=== PATIENT | female | born 1995 | race Caucasian/White ===

== ENCOUNTER 2017-09-17 16:27 | Emergency (ER) | payer OTHER ==
[~2017-09-17] VITALS: Ht 162.6 cm; Wt 68.0 kg
[~2017-09-17 16:27] MED LIST: FLEXERIL 5MG TAB5 MG PO; MOBIC 15MG15 MG PO
[2017-09-17 20:03] LABS: ABSOLUTE BASOPHIL COUNT 0 /CUMM (0.0-0.2); ABSOLUTE EOSINOPHIL COUNT 0.1 /CUMM (0.0-0.7); ABSOLUTE GRANULOCYTE CT 4.4 /CUMM (1.4-6.5); ABSOLUTE LYMPH COUNT 2.1 /CUMM (1.2-3.4); ABSOLUTE MONOCYTE COUNT 0.4 /CUMM (0.10-0.60); BASOPHIL % 0.3 % (0.0-2.0); EOSINOPHIL % 1.1 % (0-5); GRANULOCYTE % 62.4 % (42.2-75.2); HEMATOCRIT 37.8 % (37-47); MEAN CORPUSCULAR HGB 30.2 PG (27.0-31.0); MEAN CORPUSCULAR HGB CONC 33.9 G/DL (33.0-37.0); MEAN CORPUSCULAR VOLUME 89.3 FL (81.0-99.0); PLATELET COUNT 254 /CUMM (130-400); RBC DISTRIBUTION WIDTH 14.8 % (11.5-14.5); RED BLOOD CELL CT 4.24 /CUMM (4.20-5.40)
[2017-09-17] MEDS ORDERED: ZOFRAN ODT4 M1 SL (21:28)
[2017-09-17] MEDS ORDERED: DICLEGIS DR 101 EACH PO (21:28)
--- NOTE | 2017-09-17 21:28 | ED GI/GU/ABDOMINAL COMPLAINT ---
History of Present Illness General Chief Complaint: General Adult Stated Complaint: "IM AND NEED IV FLUIDS" Source: patient, family, old records Exam Limitations: no limitations Vital Signs & Intake/Output Vital Signs & Intake/Output Vital Signs Date Time Temp Pulse Resp B/P B/P Pulse O2 O2 Flow FiO2 Mean Ox Delivery Rate 09/172 98.6 56 16 119/67 100 Room Air 09/17 1939 97.9 68 20 119/73 100 Room Air 09/17 1653 96.9 65 18 115/76 99 Room Air Allergies Coded Allergies: benzoin (Intermediate, RASH 09/17/17) Reconcile Medications Cyclobenzaprine (Flexeril 5MG Tab) 5 MG TAB 1 TAB PO Q8H PRN MUSCLE RELAXANT Doxylamine/Pyridoxine HCl (Diclegis Dr 10-10 MG Tablet) 10 MG-10 MG TABLET.DR 2 TAB PO QPM nausea May advance 1 tab in morning and 1 tab in afternoon as needed Meloxicam (Mobic 15MG) 15 MG TAB 1 TAB PO DAILY PRN PAIN/INFLAMMATION Ondansetron (Zofran Odt) 4 MG TAB.RAPDIS 1 TAB SL TID PRN nausea Triage Note: PT TO ED FOR "IV FLUIDS BECAUSE IM " PT REPORTING SHE IS THREE MONTHS "AND I'VE BEEN VOMITING THE WHOLE TIME AND CAN'T KEEP ANYTHING DOWN." 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 yes LMP (ages 10-50): date (June) ? n Is pt currently ? No Onset: 2 months Duration: week(s):, continues in ED, intermittent Timing: recent history Quality/Severity: cramping, severe, vomiting Location: generalized abdomen Radiation: no radiation Activities at Onset: eating Prior Abdominal Problems: similar symptoms Sexually Active: Yes Last Time You Were Sexual: less than 2 months ago Sexual Orientation: Heterosexual Use of Protection: No Modifying Factors: Worsens With: eating. Associated Symptoms: loss of appetite, nausea/vomiting HPI: The patient is 0010 12 weeks age of gestation with continued nausea vomiting abdominal cramps anorexia and fatigue and dizziness. She denies chest pain cough shortness of breath headache dysuria rash bleeding. Past History Travel History Traveled to [place] past 21 day No Medical History Any Pertinent Medical History? see below for history Neurological: NONE EENT: NONE Cardiovascular: NONE Respiratory: NONE Gastrointestinal: NONE Hepatic: NONE Renal: NONE Musculoskeletal: NONE Psychiatric: NONE Endocrine: NONE Blood Disorders: ELEVATED CHOLESTEROL Surgical History Surgical History: non-contributory Psychosocial History What is your primary language Albanian Tobacco Use: Current Not Daily Daily Tobacco Use Amount/Type: =< 4 Cigarettes daily ETOH Use: denies use Illicit Drug Use: denies illicit drug use Family History Hx Contributory? No Review of Systems Review of Systems Constitutional: Reports: see HPI, weakness. EENTM: Reports: no symptoms. Respiratory: Reports: no symptoms. Cardiovascular: Reports: no symptoms. GI: Reports: see HPI, abdominal pain, nausea, vomiting. Genitourinary: Reports: no symptoms. Musculoskeletal: Reports: no symptoms. Skin: Reports: no symptoms. Neurological/Psychological: Reports: no symptoms. Hematologic/Endocrine: Reports: no symptoms. Immunologic/Allergic: Reports: no symptoms. All Other Systems: Reviewed and Negative Physical Exam Physical Exam General Appearance: well developed/nourished, alert, awake, anxious, mild distress Head: atraumatic, normal appearance Eyes: Bilateral: normal appearance, PERRL, EOMI. Ears, Nose, Throat, Mouth: hearing grossly normal, dry mucous membranes Neck: normal inspection, supple, full range of motion, normal alignment Respiratory: normal breath sounds, chest non-tender, no respiratory distress, quiet respiration, lungs clear Cardiovascular: regular rate/rhythm, normal peripheral pulses, norml femoral pulses equa Peripheral Pulses: 4+ carotid (R), 4+ carotid (L) Gastrointestinal: normal bowel sounds, soft, non-tender, no organomegaly Back: normal inspection, normal range of motion, no vertebral tenderness Extremities: normal range of motion, no ligament instability Neurologic/Psych: no motor/sensory deficits, awake, alert, oriented x 3, normal gait, normal mood/affect, 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 No Sepsis Present: No Sepsis Focused Exam Completed? No Progress Differential Diagnosis: biliary colic, gastritis, pancreatitis Plan of Care: Orders Procedure Date/time Status MISTAKE 09/17 1938 Active MAGNESIUM 09/17 1938 Complete LIPASE 09/17 1938 Complete COMPREHENSIVE METABOLIC PANEL 09/17 1938 Complete CBC WITHOUT DIFFERENTIAL 09/17 1938 Complete Laboratory Tests 09/17/171954: Anion Gap 11, Estimated GFR > 60, BUN/Creatinine Ratio 15.0, Glucose 78, Calcium 9.5, Magnesium 1.5 L, Total Bilirubin 0.3, AST 14, ALT 20, Alkaline Phosphatase 43, Total Protein 7.5, Albumin 4.3, Globulin 3.2, Albumin/Globulin Ratio 1.3, Lipase 119, CBC w Diff NO MAN DIFF REQ, RBC 4.24, MCV 89.3, MCH 30.2, MCHC 33.9, RDW 14.8 H, MPV 8.0, Gran % 62.4, Lymphocytes % 30.1, Monocytes % 6.1, Eosinophils % 1.1, Basophils % 0.3, Absolute Granulocytes 4.4, Absolute Lymphocytes 2.1, Absolute Monocytes 0.4, Absolute Eosinophils 0.1, Absolute Basophils 0 Initial ED EKG: none Departure Departure Time of Disposition: 2124 Disposition: HOME OR SELF CARE Condition: Stable Clinical Impression Primary Impression: Hyperemesis gravidarum Referrals: Nhung Roque (PCP/Family) Departure Forms: Customer Survey General Discharge Information Prescriptions: Current Visit Scripts Ondansetron (Zofran Odt) 1 TAB SL TID PRN nausea #10 TAB Doxylamine/Pyridoxine HCl (Diclegis Dr 10-10 MG Tablet) 2 TAB PO QPM #48 TAB May advance 1 tab in morning and 1 tab in afternoon as needed
[2017-09-17 21:32] VITALS: BP 119/67
== END 2017-09-17 21:35 ==
LOC: ERH 16:27
PROVIDERS: Emergency Medicine
DX: O21.0 Mild hyperemesis gravidarum (principal); Z3A.12 12 weeks gestation of pregnancy
CPT/HCPCS: 96374; J2405

== ENCOUNTER 2018-04-17 09:31 | Inpatient (IN) | payer OTHER ==
[~2018-04-17] VITALS: Ht 162.6 cm; Wt 80.3 kg
[~2018-04-17 09:31] MED LIST changes: +DICLEGIS DR 101 EACH PO; +ZOFRAN ODT4 M1 SL
[2018-04-17] MEDS ORDERED: PRENATAL ONE D1 EACH PO (10:35)
[2018-04-17 12:04] LABS: ABSOLUTE BASOPHIL COUNT 0 /CUMM (0.0-0.2); ABSOLUTE EOSINOPHIL COUNT 0 /CUMM (0.0-0.7); ABSOLUTE GRANULOCYTE CT 3.7 /CUMM (1.4-6.5); ABSOLUTE LYMPH COUNT 1.4 /CUMM (1.2-3.4); ABSOLUTE MONOCYTE COUNT 0.4 /CUMM (0.10-0.60); BASOPHIL % 0.3 % (0.0-2.0); EOSINOPHIL % 0.5 % (0-5); GRANULOCYTE % 66.3 % (42.2-75.2); MEAN CORPUSCULAR HGB CONC 32.5 G/DL (33.0-37.0); MEAN CORPUSCULAR VOLUME 76.9 FL (81.0-99.0); MEAN PLATELET VOLUME 9.6 FL (7.4-10.4); PLATELET COUNT 217 /CUMM (130-400); RBC DISTRIBUTION WIDTH 16.3 % (11.5-14.5); RED BLOOD CELL CT 3.78 /CUMM (4.20-5.40); WHITE BLOOD CELL COUNT 5.6 /CUMM (4.8-10.8)
--- NOTE | 2018-04-17 12:13 | History & Physical ---
General Information and HPI MD Statement: I have seen and personally examined DANIEL ACE and documented this H&P. The patient is a 23 year old female at 41 weeks and 1 days gestation who presented with a chief complaint of postdatism. Source of Information: patient, old records Exam Limitations: no limitations History of Present Illness: pt well known to our OB practice now at 41 weeks Allergies/Medications Allergies: Coded Allergies: benzoin (Intermediate, RASH 04/17/18) Home Med list Vit No.129/Iron/FA ( One Daily Tablet) 27 MG IRON-800 MCG TABLET 1 TAB PO DAILY (Reported) Compliance With Home Meds: GOOD Past History supply controller History : 1 Para: 0 Last Menstrual Period: 07/03/17 Estimated Delivery Date: 04/09/18 Past supply controller History: none Medical History Neurological: NONE EENT: NONE Cardiovascular: NONE Respiratory: NONE Gastrointestinal: NONE Hepatic: NONE Renal: NONE Musculoskeletal: NONE Psychiatric: NONE Endocrine: NONE Blood Disorders: ELEVATED CHOLESTEROL Surgical History Pertinent Surgical History: non-contributory Past Family/Social History Psychosocial History Smoking Status: Former Smoker Review of Systems Review of Systems Constitutional: Denies: chills, fever. EENTM: Denies: blurred vision, double vision, visual changes. Cardiovascular: Denies: chest pain. Respiratory: Denies: cough, short of breath. GI: Denies: abdominal pain, diarrhea, nausea, vomiting. Neurological/Psychological: Denies: anxiety, depressed. Exam & Diagnostic Data Last 24 Hrs of Vital Signs/I&O vss Intake & Output 04/17 1600 09/10 0800 09 0000 Intake Total Output Total Balance Patient 177 lb Weight Obstetric Exam Wgt Gained During : 29 lbs Pelvimetry: seems adequate at exam Dilation (cm): 1 Effacement (%): 10 Station: -3 Membranes: intact Fluid: unknown Fundal Height (cm): 38 Multiple Gestation? No Contractions: rare Infant #1 - FHR Baseline: 140 Category: 1 Estimated Weight: 3600g Presentation: vtx Patient for Induction? Yes Zamora Score Zamora Score Response Value Cervix Position: posterior 0 Cervix Consistency: firm 0 Cervix Effacement: 0-30% 0 Cervix Dilation: 1-2 cm 1 Cervix Station: -3 0 Total 1 Physical Exam General Appearance Alert, Oriented X3, Cooperative, No Acute Distress Skin No Rashes HEENT Atraumatic Neck Supple Cardiovascular Regular Rate Lungs Clear to Auscultation Abdomen Normal Bowel Sounds, Soft, No Tenderness Neurological Normal Gait, Normal Speech, Strength at 5/5 X4 Ext, Normal Tone, Sensation Intact, Reflexes 2+ Labs Blood Type & Rh: B pos Antibody Screen: neg Hct/Hgb & Platelets #1: 37.8/12.8/254 Hct/Hgb & Platelets #2: 32.8/9.5/238 Rubella: immune VDRL #1: nr VDRL #2: nr HbsAg: neg HIV #1: nr HIV #2 nr 1 Hr P Group B Strep: positive Initial Ultrasound: 08/30/17 8w 2d Anatomy Ultrasound: 11/23/17 anatomy normal Genetic Testing: negative Last 24 Hrs of Labs/Nader: Laboratory Tests 04/17/18 1000: CBC w Diff Pending, WBC Pending, RBC Pending, Hgb Pending, Hct Pending, MCV Pending, MCH Pending, MCHC Pending, RDW Pending, Plt Count Pending, MPV Pending 04/17/18 0930: Urine Color Pending, Urine Clarity Pending, Urine pH Pending, Ur Specific [place] Pending, Urine Protein Pending, Urine Ketones Pending, Urine Nitrite Pending, Urine Bilirubin Pending, Urine Urobilinogen Pending, Ur Leukocyte Esterase Pending, Ur Microscopic Pending, Urine Hemoglobin Pending, Urine Glucose Pending Assessment/Plan Assessment/Plan: IUP approaching post dates non inducable cervix plan misoprostal cervical ripening unable to reach cervix for valencia balloon on admission pt herself had an imperforate anus at As Ranked By This Provider Problem List: 1. Core Measures Venous Thromboembolism VTE Risk Factors / No Mechanical VTE Prophylaxis d/t LowRisk-No Interven Req'd No VTE Pharm Prophylaxis d/t LowRisk-No Interven Req'd
--- NOTE | 2018-04-18 09:59 | PN- OBGYN ---
Surgical Brief Attending Note Brief Attending Note: late entry for 9AM 23-year-old female admitted for induction of labor due to postdates on 2017, uncomplicated course. She received 1 dose of misoprostol for cervical ripening, then labor progresses, she received epidural for pain management. This morning patient complaining of contraction pain, cervix was 7 cm dilated, edema noted per RN, on toco, contraction was every 4-5 minutes apart , heart tracing category 1. Will give patient epidural top off, will start Pitocin augmentation. Will monitor closely.
--- NOTE | 2018-04-18 12:11 | PN- OBGYN ---
Surgical Brief Attending Note Brief Attending Note: pt c/o rectal pressure, also back pain, pitocin at 4mU/min on TOCO: not picking well due to pt's position, FHR cat I cervix 7-8/70%/0, anterior cervix edema will continue current management, recheck in 2 hrs, monitor closely
--- NOTE | 2018-04-18 15:07 | PN- OBGYN ---
Surgical Brief Attending Note Brief Attending Note: pt is comfortable with epidural, on TOCO: ctxs q 2-3 min, FHT cat I cervix 9cm ( per RN) will continue current management
--- NOTE | 2018-04-18 23:52 | Labor & Delivery Summary ---
Delivery Summary Vaginal Delivery: Vaginal: vertex Episiotomy/Lacerations: Episiotomy/Lacerations: 2ND DEGREE Type: 2ND DEGREE Repair: 3-0 VICRYL Anesthesia: EPIDURAL, LOCAL Placenta: Placenta: spontanteous, normal, 3 vessel, nuchal cord (x_) (X2) Anesthesia: EPIDURAL Baby's Weight: [id number] Apgars - 1 Min: 8 Apgars - 5 Min: 9 Additional Comments: Patient fully dilated, pushed well, spontaneously delivered a viable male infant at cephalic presentation, BLANCA position, head delivered atraumatically, loose nuchal cord 2, reduced, followed by shoulder and rest of the body without difficulties, baby vigorous and cried, place on mother's chest, cord clamped and cut. Placenta delivered spontaneously, intact, three-vessel cord. After delivery the placenta, uterine atony encountered, IV Pitocin given, uterus massaged to firm, Methergine 0.2 mg IM 1 dose given, heavy uterine bleeding still encountered, Hemabate 1 dose given IM. Vaginal bleeding slowed down. Small second-degree laceration repaired in standard technique with 3-0 Vicryl. Instruments, needles and laps counts were correct. EBL 485ML Patient tolerated the procedure well, she is in recovery room in stable condition.
[2018-04-19 01:38] VITALS: BP 122/82
[2018-04-19 08:17] LABS: ABSOLUTE BASOPHIL COUNT 0 /CUMM (0.0-0.2); ABSOLUTE EOSINOPHIL COUNT 0 /CUMM (0.0-0.7); ABSOLUTE GRANULOCYTE CT 14.8 /CUMM (1.4-6.5); ABSOLUTE LYMPH COUNT 1.7 /CUMM (1.2-3.4); BASOPHIL % 0.1 % (0.0-2.0); EOSINOPHIL % 0.3 % (0-5); HEMATOCRIT 26.2 % (37-47); MEAN CORPUSCULAR HGB CONC 32.3 G/DL (33.0-37.0); MEAN CORPUSCULAR VOLUME 77.6 FL (81.0-99.0); MEAN PLATELET VOLUME 9.6 FL (7.4-10.4); PLATELET COUNT 219 /CUMM (130-400); RBC DISTRIBUTION WIDTH 16.8 % (11.5-14.5); RED BLOOD CELL CT 3.38 /CUMM (4.20-5.40)
[2018-04-19 08:23] LABS: WHITE BLOOD CELL COUNT 17.5 /CUMM (4.8-10.8)
[2018-04-19 08:46] LABS: GRANULOCYTE % 84.3 % (42.2-75.2)
--- NOTE | 2018-04-19 19:51 | PN- OBGYN ---
Surgical Brief Attending Note Brief Attending Note: pt c/o perineal discomfort relieved w/ motrin. amb / void / yue po. +bf. diarrhea resolved after lomotil. afeb, v/ss nad abd soft nt ff bel mod lochia ext nt no ed hct 29-->26 a/p ppd 1 s/p doing well -pain mgmt -routine pp care -ant d/c home rm
[2018-04-20] MEDS ORDERED: IBUPROFEN800 M1 PO (06:27)
--- NOTE | 2018-04-21 09:48 | PN- OBGYN ---
Surgical Brief Attending Note Brief Attending Note: PPD2 Patient appears pale, states she feels stronger after finally getting some sleep. Denies dizziness, chest pain, palpitations, or SOB, especially when ambulating. Scant lochia rubra. Nursing going well, and some cramping during. Normal voiding, tolerating POs. afebrile VS normal Lips - very pale, moist Neck - supple Breasts - engorgement starting Abd -soft, NT Fundus - firm, NT Perineum - dry, intact Extr - benign A: stable anemia from post-delivery uterine atony and PPH P: home today daily PNV and a daily iron supplement anemia precautions discussed Patient requests circumcision for her son. Risks, benefits,purpose, and alternatives d/w pt., questions answered, and informed consent obtained.
== END 2018-04-20 12:16 | DRG 560 ==
LOC: GNO 09:31
PROVIDERS: Obstetrics & Gynecology
PROC: 3E0P7VZ Introduction of Hormone into Female Reproductive, Via Natural or Artificial Opening (ICD-10-PCS; principal; 2018-04-18)
PROC: 0KQM0ZZ Repair Perineum Muscle, Open Approach (ICD-10-PCS; principal; 2018-04-18)
PROC: 10E0XZZ Delivery of Products of Conception, External Approach (ICD-10-PCS; principal; 2018-04-18)
DX: O70.1 Second degree perineal laceration during delivery (principal); O69.81X0 Labor and delivery complicated by cord around neck, without compression, not applicable or unspecified; Z3A.41 41 weeks gestation of pregnancy; Z37.0 Single live birth; O99.824 Streptococcus B carrier state complicating childbirth; O48.0 Post-term pregnancy
CPT/HCPCS: GNOP; GNOS; 81001; 87086; J0131; J1200; J1885; J2210; J2405; J7120